=== PATIENT | female | born 1990 | race Caucasian/White ===

== ENCOUNTER 2018-01-22 21:08 | Emergency (ER) | payer OTHER, MEDICAID ==
[2018-01-23 00:54] LABS: ADD MAN DIFF? NO
[2018-01-23 01:00] LABS: BASOPHILS % 0.4 % (0.0-2.0); EOSINOPHILS # 0.2 10^3/ul (0.0-0.5); HEMATOCRIT 43.7 % (37.0-47.0); HEMOGLOBIN 14.4 g/dl (12.0-16.0); LYMPHOCYTES # 3.6 10^3/ul (0.8-2.9); LYMPHOCYTES % 45.2 % (15.0-51.0); MEAN CORPUSCULAR HEMOGLOBIN 29.6 pg (29.0-33.0); MEAN CORPUSCULAR VOLUME 89.9 fl (82.0-101.0); MEAN PLATELET VOLUME 9.4 fl (7.4-10.4); MONOCYTE # 0.4 10^3/ul (0.3-0.9); MONOCYTES % 5.6 % (0.0-11.0); NEUTROPHIL # 3.7 10^3/ul (1.6-7.5); NEUTROPHILS % 46.5 % (39.0-77.0); PLATELET COUNT 250 10^3/UL (140-415); RED BLOOD COUNT 4.86 10^6/ul (4.20-5.40)
[2018-01-23 01:00] LABS: WHITE BLOOD COUNT 7.9 10^3/ul (4.8-10.8)
[2018-01-23 01:12] LABS: ADD UMIC NO; UR AMORPHOUS CRYSTAL FEW /HPF (NONE SEEN); UR ASCORBIC ACID NEGATIVE (NEGATIVE); UR BILIRUBIN (Dip) NEGATIVE (NEGATIVE); UR BLOOD (Dip) NEGATIVE (NEGATIVE); UR CLARITY SLIGHTLY CLOUDY (CLEAR); UR COLOR YELLOW (YELLOW); UR GLUCOSE (Dip) NEGATIVE (NEGATIVE); UR KETONES (Dip) NEGATIVE (NEGATIVE); UR LEUKOCYTE ESTERASE (Dip) NEGATIVE Leu/ul (NEGATIVE); UR NITRITE (Dip) NEGATIVE (NEGATIVE); UR RBC 1 /HPF (0-5); UR SPECIFIC GRAVITY (Dip) 1.014 (1.003-1.030); UR TOTAL PROTEIN (Dip) NEGATIVE (NEGATIVE); UR UROBILINOGEN (Dip) NEGATIVE (NEGATIVE); UR WBC 1 /HPF (0-5)
== END 2018-01-23 03:07 | disposition home or self-care (01) ==
LOC: FTE 21:08
DX: N93.9 Abnormal uterine and vaginal bleeding, unspecified (principal)
CPT/HCPCS: 76830; 76856; 81001; 81003; 81025; 84702; 85025; 86850; 86900; 86901; 99284-25